=== PATIENT | female | born 1950 | race American Indian/Alaskan Native ===

== ENCOUNTER 2017-07-23 23:33 | Emergency (ER) | payer MEDICARE, OTHER ==
[2017-07-23 23:33] VITALS: BMI 58.1
[2017-07-24 00:04] VITALS: RESP 18; TEMP 97.9; O2SAT 99
[2017-07-24 01:02] LABS: BASO # 0.02 K/mm3 (0.0-2.0); BASO % 0.2 % (0.0-3.0); EOS # 0.4 (0.0-0.7); EOS % 4.4 % (1.5-5.0); GRAN # 4.44 (1.4-6.5); GRAN % 52.3 % (50.0-68.0); HEMATOCRIT 39.1 % (36.0-48.0); LYMPH % 35.3 % (22.0-35.0); MEAN CELL VOLUME 83.4 fl (80.0-105.0); MEAN CORPUSCULAR HGB CONC 31.2 g/dl (31.0-37.0); MEAN PLATELET VOLUME 11.2 fl (7.0-11.0); MONO # 0.7 (0.1-0.6); MONO % 7.8 % (1.0-6.0); RED CELL DISTRIBUTION WIDTH 15.5 % (11.5-14.5); WHITE BLOOD COUNT 8.5 10^3/ul (4.5-11.0)
[2017-07-24 01:17] LABS: CALCIUM 9.4 mg/dL (8.4-10.5)
[2017-07-24 01:18] LABS: INR 2.92 (0.93-1.08); PARTIAL THROMBOPLASTIN TIME 46.8 Seconds (25.1-36.5)
[2017-07-24 01:20] LABS: ALB/GLOB RATIO 0.9 (1.1-1.8); BILIRUBIN,TOTAL 0.8 mg/dL (0.2-1.3); POTASSIUM 4.7 mmol/L (3.6-5.0); TOTAL PROTEIN 8.2 g/dL (5.8-8.3)
--- NOTE | 2017-07-24 01:56 | ED PDOC ---
Arrival/HPI - General Historian: Patient - History of Present Illness Time/Duration: Prior to Arrival Symptom Onset: Sudden Symptom Course: Unchanged Activities at Onset: Light Context: Home <Dennise Brody PA-C - Last Filed: 07/24/17 02:24> <Narendra Da Silva - Last Filed: 07/24/17 04:49> - General Chief Complaint: Lower Extremity Problem/Injury Time Seen by Provider: 07/23/17 23:53 - History of Present Illness Narrative History of Present Illness (Text): 07/24/17 23:55 67 year old female, whose past medical history includes PE (on Coumadin) and surgical history includes bilateral oopherectomy, presents to the Emergency department complaining of cramping of the posterior aspect of her L thigh. Patient has been missing dosages on her medication and is considered it may be developing a clot. She reports she hasn't has an INR check for months. Patient also reports lower abdominal "gas pain". Upon arrival patient has been passing gas. Patient suffers from constipation with bowel movement every other day and had normal bowels yesterday. Patient denies recent travels, any fevers, chills, chest pain, shortness of breath, abdominal pain, nausea, vomiting, diarrhea, back pain, neck pain, urinary/bowel changes, headache, dizziness, or any other complaint. PMD: Dr. Anderson (Dennise Brody PA-C) Past Medical History - Provider Review Nursing Documentation Reviewed: Yes - Travel History Have you recently traveled outside [place] w/in the past 3 mons?: No - Infectious Disease Hx of Infectious Diseases: None - Tetanus Immunization Tetanus Immunization: Unknown - Cardiac Hx Cardiac Disorders: Yes Hx Hypertension: Yes - Pulmonary Hx Respiratory Disorders: Yes Hx Asthma: Yes - Neurological Hx Neurological Disorder: No - HEENT Hx HEENT Disorder: Yes Hx Cataracts: Yes (left eye) - Renal Hx Renal Disorder: No - Endocrine/Metabolic Hx Endocrine Disorders: No - Hematological/Oncological Hx Blood Transfusions: Yes Hx Blood Transfusion Reaction: No - Integumentary Hx Dermatological Disorder: No - Musculoskeletal/Rheumatological Hx Musculoskeletal Disorders: No Hx Falls: No - Gastrointestinal Hx Gastrointestinal Disorders: Yes Hx Gastroesophageal Reflux: Yes - Genitourinary/Gynecological Hx Genitourinary Disorders: Yes Hx Urinary Tract Infection: Yes - Psychiatric Hx Psychophysiologic Disorder: No Hx Substance Use: No - Surgical History Other/Comment: tubal ligation oopharectomy - Anesthesia Hx Anesthesia Reactions: No Hx Malignant Hyperthermia: No <Dennise Brody PA-C - Last Filed: 07/24/17 02:24> Family/Social History - Physician Review Nursing Documentation Reviewed: Yes Family/Social History: Unknown Family HX Smoking Status: Never Smoked Hx Alcohol Use: No Hx Substance Use: No <Dennise Brody PA-C - Last Filed: 07/24/17 02:24> Allergies/Home Meds <Dennise Brody PA-C - Last Filed: 07/24/17 02:24> <Narendra Da Silva - Last Filed: 07/24/17 04:49> Allergies/Adverse Reactions: Allergies omeprazole Allergy (Verified 05/06/16 18:04) PAIN Home Medications: Home Meds Medication Instructions Recorded Confirmed Dexlansoprazole [Dexilant] 60 mg PO DAILY 05/06/16 07/24/17 Furosemide [Lasix] 40 mg PO DAILY 05/06/16 07/24/17 Linaclotide [Linzess] 145 mcg PO DAILY 05/06/16 07/24/17 Nifedipine [Nifediac cc] 60 mg PO DAILY 05/06/16 07/24/17 Potassium Chloride [K-Dur 20 mEq 20 meq PO DAILY 05/06/16 07/24/17 ER Tab] Quinapril [Accupril] 20 mg PO DAILY 05/06/16 07/24/17 Warfarin [Coumadin] 6 mg PO DAILY 05/06/16 07/24/17 Review of Systems - Physician Review All systems were reviewed & negative as marked: Yes - Review of Systems Constitutional: absent: Fevers, Other (Chills) Respiratory: absent: SOB Cardiovascular: absent: Chest Pain Gastrointestinal: Constipation. absent: Abdominal Pain, Diarrhea, Nausea, Vomiting Genitourinary Female: absent: Dysuria, Frequency, Hematuria Musculoskeletal: Other (right thigh cramping). absent: Back Pain, Neck Pain Neurological: absent: Headache, Dizziness <Dennise Brody PA-C - Last Filed: 07/24/17 02:24> Physical Exam Vital Signs Reviewed: Yes Temperature: Afebrile Blood Pressure: Normal Pulse: Regular Respiratory Rate: Normal Appearance: Positive for: Well-Appearing, Non-Toxic, Comfortable, Other (Obese) Pain Distress: None Mental Status: Positive for: Alert and Oriented X 3 - Systems Exam Head: Present: Atraumatic, Normocephalic Pupils: Present: PERRL Extroacular Muscles: Present: EOMI Conjunctiva: Present: Normal Mouth: Present: Moist Mucous Membranes Neck: Present: Normal Range of Motion Respiratory/Chest: Present: Clear to Auscultation, Good Air Exchange. No: Respiratory Distress, Accessory Muscle Use Cardiovascular: Present: Regular Rate and Rhythm, Normal S1, S2. No: Murmurs Abdomen: Present: Normal Bowel Sounds. No: Tenderness, Distention, Peritoneal Signs Back: Present: Normal Inspection Upper Extremity: Present: Normal Inspection. No: Cyanosis, Edema Lower Extremity: Present: Normal Inspection, NORMAL PULSES, Normal ROM, Neurovascularly Intact, Capillary Refill < 2 s. No: Edema, Tenderness, Deformity Neurological: Present: GCS=15, CN II-XII Intact, Speech Normal Skin: Present: Warm, Dry, Normal Color. No: Rashes Psychiatric: Present: Alert, Oriented x 3, Normal Insight, Normal Concentration <Dennise Brody PA-C - Last Filed: 07/24/17 02:24> Vital Signs Temp Pulse Resp BP Pulse Ox 07/24/17 02:00 68 18 115/70 99 07/24/17 00:01 97.9 F 71 18 114/69 99 Medical Decision Making - Lab Interpretations I have reviewed the lab results: Yes <Dennise Brody PA-C - Last Filed: 07/24/17 02:24> <Narendra Da Silva - Last Filed: 07/24/17 04:49> ED Course and Treatment: 07/24/17 23:55 Impression: 67 year old female presents complaining of cramping on the right thigh that began today, Patient has history of PE. Plan: -- Labs -- Abd 2 views x-ray -- Reassess and disposition Progress Notes: Labs reviewed and are wnl : INR is 2.9. AXR : (+) FOS, (-) air fluid levels, as read by FELIX. On re-evaluation, patient is laying in bed comfortably in no acute distress, reports no nausea or abdominal pain. Abdomen remains soft with no tenderness. Diagnostic results d/w the patient in great detail. Instructed to follow up with primary care physician in 1-2 days without fail. Advised to increase water and fiber intake. Return to the emergency room at any time for any new or worsening symptoms. Patient states she fully agrees with and understands discharge instructions. States that she agrees with the plan and disposition. Verbalized and repeated discharge instructions and plan. I have given the patient opportunity to ask any additional questions. (Ronn WINTERS,Dennise Reyes) - Lab Interpretations Lab Results: 07/24/17 00:55 12 00:55 Lab Results 07/24/17 00:55: Sodium 137, Potassium 4.7, Chloride 101, Carbon Dioxide 32, Anion Gap 9 L, BUN 22 H, Creatinine 1.1, Est GFR ( Amer) 60, Est GFR (Non -Af Amer) 49, Random Glucose 104, Calcium 9.4, Total Bilirubin 0.8, AST 36, ALT 30, Alkaline Phosphatase 102, Total Protein 8.2, Albumin 3.9, Globulin 4.3, Albumin/Globulin Ratio 0.9 L, Lipase 110 07/24/17 00:55: PT 32.5 H, INR 2.92 H, APTT 46.8 H 07/24/17 00:55: WBC 8.5, RBC 4.69, Hgb 12.2, Hct 39.1, MCV 83.4, MCH 26.0, MCHC 31.2, RDW 15.5 H, Plt Count 226, MPV 11.2 H, Gran % 52.3, Lymph % (Auto) 35.3 H , [place] % (Auto) 7.8 H, Eos % (Auto) 4.4, Baso % (Auto) 0.2, Gran # 4.44, Lymph # 3.0, [place] # 0.7 H, Eos # 0.4, Baso # 0.02 - RAD Interpretation Radiology Orders: 07/24/17 00:36 obstructive series [ABD 2 VIEWS (FLAT/UP OR DECUB)] [RAD] Stat - PA / PROFESSIONAL DEVELOPMENT MANAGER / Resident Statement MD/DO has reviewed & agrees with the documentation as recorded. - Scribe Statement The provider has reviewed the documentation as recorded by the Scribe <Dennise Brody PA-C - Last Filed: 07/24/17 02:24> - PA / PROFESSIONAL DEVELOPMENT MANAGER / Resident Statement MD/DO has reviewed & agrees with the documentation as recorded. <Narendra Da Silva - Last Filed: 07/24/17 04:49> - Scribe Statement Roberto Hurst Provider Scribe Attestation: All medical record entries made by the Scribe were at my direction and personally dictated by me. I have reviewed the chart and agree that the record accurately reflects my personal performance of the history, physical exam, medical decision making, and the department course for this patient. I have also personally directed, reviewed, and agree with the discharge instructions and disposition. (Dennise Brody PA-C) Disposition/Present on Arrival - Present on Arrival Any Indicators Present on Arrival: Yes History of DVT/PE: Yes History of Uncontrolled Diabetes: No Urinary Catheter: No History of Decub. Ulcer: No History Surgical Site Infection Following: None - Disposition Have Diagnosis and Disposition been Completed?: Yes Disposition Time: 02:28 Patient Plan: Discharge <Dennise Brody PA-C - Last Filed: 07/24/17 02:24> <Narendra Da Silva - Last Filed: 07/24/17 04:49> - Disposition Diagnosis: Constipation, Leg pain, left Disposition: HOME/ ROUTINE Condition: STABLE Discharge Instructions (ExitCare): Constipation (ED), Leg Pain (ED) Print Language: YORUBA Additional Instructions: Thank you for letting us take care of you today. You were treated for constipation, leg pain. The emergency medical care you received today was directed at your acute symptoms. Increase your water and fiber intake. It may take several days for your symptoms to resolve. Return to the Emergency Department if your symptoms worsen, do not improve, or if you have any other problems. Please contact your doctor in 2 days for re-evaluation and follow up. Bring any paperwork you were given at discharge with you along with any medications you are taking to your follow up visit. Our treatment cannot replace ongoing medical care by a primary care provider (PCP) outside of the emergency department. Thank you for allowing the [facility] team to be part of your care today. Referrals: Jose Anderson MD [Primary Care Provider] - Follow up with primary Forms: [employer] (Bengali)
[2017-07-24 03:00] VITALS: BP 115/70; PULSE 68
--- NOTE | 2017-07-24 10:51 | RAD ---
HISTORY: pain COMPARISON: None available. FINDINGS: Examination limited by habitus. BOWEL: Nonspecific bowel gas pattern. Moderate constipation. BONES: Degenerative changes. OTHER FINDINGS: Partially imaged pacemaker wire. IMPRESSION: Nonspecific bowel gas pattern. Moderate constipation.
== END 2017-07-24 03:10 | disposition home or self-care (01) ==
LOC: ED 23:33
DX: M79.605 Pain in left leg (principal); K59.00 Constipation, unspecified; I10 Essential (primary) hypertension; Z86.711 Personal history of pulmonary embolism; Z79.01 Long term (current) use of anticoagulants

== ENCOUNTER 2018-10-28 03:15 | Emergency (ER) | payer MEDICARE, OTHER ==
[2018-10-28 03:15] VITALS: BMI 58.1
[2018-10-28 03:32] VITALS: BP 138/74; PULSE 83; RESP 18; TEMP 98.7
--- NOTE | 2018-10-28 04:04 | ED PDOC ---
Arrival/HPI - General Chief Complaint: Cough, Cold, Congestion Time Seen by Provider: 10/28/18 03:19 Historian: Patient - History of Present Illness Narrative History of Present Illness (Text): 10/28/18 03:59 68 year old female, whose past medical history includes asthma, PE on Warfarin since 2002, and hypertension, presents to the emergency department with cough, for 2 days. Patient states she went to her PMD who gave her Amoxicillin. Patient informs cough is persisting today, after she tried taking Robitussin. Patient informs cough is keeping her from sleeping. Patient states she had one episode of epistaxis. Patient also informs she coughed up some blood after. Patient denies any chest pain, shortness of breath, fevers, chills, abdominal pain, nausea, vomiting, diarrhea, back pain, neck pain, or any other complaint. 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) - Pulmonary Hx Respiratory Disorders: Yes Hx Asthma: Yes - Neurological Hx Neurological Disorder: No - HEENT Hx HEENT Disorder: Yes Hx Cataracts: Yes (left eye) - Renal Hx Renal Disorder: No - Endocrine/Metabolic Hx Endocrine Disorders: No - Hematological/Oncological Hx Blood Transfusions: Yes Hx Blood Transfusion Reaction: No - Integumentary Hx Dermatological Disorder: No - Musculoskeletal/Rheumatological Hx Musculoskeletal Disorders: No Hx Falls: No - Gastrointestinal Hx Gastrointestinal Disorders: Yes Hx Gastroesophageal Reflux: Yes - Genitourinary/Gynecological Hx Genitourinary Disorders: Yes Hx Urinary Tract Infection: Yes - Psychiatric Hx Psychophysiologic Disorder: No Hx Substance Use: No - Surgical History Other/Comment: tubal ligation oopharectomy - Anesthesia Hx Anesthesia Reactions: No Hx Malignant Hyperthermia: No Family/Social History - Physician Review Nursing Documentation Reviewed: Yes Family/Social History: No Known Family HX Smoking Status: Never Smoked Hx Alcohol Use: No Hx Substance Use: No Allergies/Home Meds Allergies/Adverse Reactions: Allergies omeprazole Allergy (Verified 10/28/18 03:29) PAIN Home Medications: Home Meds Medication Instructions Recorded Confirmed Furosemide [Lasix] 40 mg PO DAILY 05/06/16 10/28/18 Nifedipine [Nifediac cc] 60 mg PO DAILY 05/06/16 10/28/18 Potassium Chloride [K-Dur 20 mEq 20 meq PO DAILY 05/06/16 10/28/18 ER Tab] Quinapril [Accupril] 20 mg PO DAILY 05/06/16 10/28/18 Warfarin [Coumadin] 6 mg PO DAILY 05/06/16 10/28/18 Review of Systems - Physician Review All systems were reviewed & negative as marked: Yes - Review of Systems Constitutional: absent: Fevers Respiratory: absent: SOB Physical Exam - Physical Exam Narrative Physical Exam (Text): 10/28/18 04:06 Constitutional: No acute distress. Head: Normocephalic. Atraumatic. Eyes: PERRL. ENT: No pharyngeal erythema or exudates. Neck: Supple. Cardiovascular: Regular rate. Chest: No tenderness. Coughing intermittently. Respiratory: Clear to auscultation bilaterally. GI: Soft. Nontender. Nondistended. Back: No CVA tenderness. Musculoskeletal: No tenderness or swelling of extremities. Skin: No rash. Neurologic: Alert, no focal deficit. Vital Signs Reviewed: Yes Vital Signs Temp Pulse Resp BP Pulse Ox 10/28/18 03:29 98.7 F 83 18 138/74 97 Temperature: Afebrile Blood Pressure: Normal Pulse: Regular Respiratory Rate: Normal Appearance: Positive for: Well-Appearing, Non-Toxic, Comfortable Pain Distress: None Mental Status: Positive for: Alert and Oriented X 3 Medical Decision Making ED Course and Treatment: 10/28/18 04:08 Impression: 68 year old female presents with cough Plan: -- Damien Grubbs Prior Visits: Notes and results from previous visits were reviewed. 10/28/18 04:15 Patient already on antibiotics, most likely viral URI. Patient states does not feel short of breath or chest pain or similar to symptoms of PE in past. - Scribe Statement The provider has reviewed the documentation as recorded by the Sejal Eubanks Provider Scribe Attestation: All medical record entries made by the Scribaureliano were at my direction and personally dictated by me. I have reviewed the chart and agree that the record accurately reflects my personal performance of the history, physical exam, medical decision making, and the department course for this patient. I have also personally directed, reviewed, and agree with the discharge instructions and disposition. Disposition/Present on Arrival - Present on Arrival Any Indicators Present on Arrival: Yes History of DVT/PE: Yes History of Uncontrolled Diabetes: No Urinary Catheter: No History of Decub. Ulcer: No History Surgical Site Infection Following: None - Disposition Have Diagnosis and Disposition been Completed?: Yes Diagnosis: Cough Disposition: HOME/ ROUTINE Disposition Time: 03:57 Patient Plan: Discharge Patient Problems: Current Active Problems Problem Status Onset Cough Acute Condition: GOOD Discharge Instructions (ExitCare): Viral Upper Respiratory Infection, Adult (DC) Prescriptions: Benzonatate [Tessalon Perles] 200 mg PO TID #30 sgl Referrals: Jose Anderson MD [Primary Care Provider] - Follow up with primary Forms: [facility] [employer] [facility] (Wolof)
[2018-10-28 04:14] VITALS: O2SAT 98
== END 2018-10-28 04:20 | disposition home or self-care (01) ==
LOC: ED 03:15
DX: R05 Cough (principal); I10 Essential (primary) hypertension; Z86.711 Personal history of pulmonary embolism; Z79.01 Long term (current) use of anticoagulants; J45.909 Unspecified asthma, uncomplicated

== ENCOUNTER → 2018-11-29 | Outpatient (CLI) | payer MEDICARE, OTHER | LOC: RAD 13:24 ==